=== PATIENT | male | born 1935 | race Caucasian/White ===

== ENCOUNTER → 2017-01-03 | Outpatient (CLI) | payer MEDICARE ==
[~2017-01-03] MED LIST: AMLO5TAB2 PO; ASPI-496 PO; CARV-39 PO; CARV3.1212 PO; CHOL200012 PO; CLOP75TA PO; CLOP75TA22 PO; FERR325T20 PO; FURO20TA3 PO; FURO40TA6 PO; LISI-170 PO; LISI40TA PO; MAGN300C PO; MYCO250C PO; PANT40TA3 PO; POTA20TA14 PO; PRAV80TA2 PO; REPA1TAB6 PO; SAXA2.5T PO; TACR0.5C4 PO; TAMS-11 PO; WARF5TAB PO-COUM
[2017-01-03 08:46] LABS: ASPARTATE AMINO TRANSFERASE 18 U/L (15-37); BLOOD UREA NITROGEN 27 mg/dL (7-18)
== END | disposition home or self-care (01) ==
LOC: LAB 07:59
PROVIDERS: ATTEND Internal Medicine Endocrinology, Diabetes & Metabolism
DX: E78.2 Mixed hyperlipidemia (principal); I10 Essential (primary) hypertension; E11.65 Type 2 diabetes mellitus with hyperglycemia
CPT/HCPCS: 36415; 80053; 80061; 83036; 85025

== ENCOUNTER → 2017-03-04 | Outpatient (CLI) | payer MEDICARE ==
[2017-03-04 08:16] LABS: PTH INTACT INTERPRETATION ** Comment **
[2017-03-04 08:38] LABS: PATH.CAST-FLAG NOT PRESENT; SPERM-FLAG NOT PRESENT; SRC-FLAG NOT PRESENT; XTAL-FLAG NOT PRESENT; YLC-FLAG NOT PRESENT
[2017-03-04 08:50] LABS: ASPARTATE AMINO TRANSFERASE 18 U/L (15-37); BLOOD UREA NITROGEN 33 mg/dL (7-18)
[2017-03-04 09:04] LABS: PARATHYROID HORMONE INTACT 74.1 pg/mL (14-72)
== END | disposition home or self-care (01) ==
LOC: LAB 08:09
PROVIDERS: ATTEND Internal Medicine Nephrology
DX: I12.9 Hypertensive chronic kidney disease with stage 1 through stage 4 chronic kidney disease, or unspecified chronic kidney disease (principal); N18.9 Chronic kidney disease, unspecified; E11.22 Type 2 diabetes mellitus with diabetic chronic kidney disease; E88.9 Metabolic disorder, unspecified; E55.9 Vitamin D deficiency, unspecified; R80.9 Proteinuria, unspecified; E87.6 Hypokalemia; Z94.0 Kidney transplant status
CPT/HCPCS: 36415; 80053; 80197; 81001; 82306; 82310; 82550; 82570; 82728; 83540; 83550; 83735; 83970; 84100; 84156; 84550; 85025

== ENCOUNTER 2017-05-07 10:26 | Emergency (ER) | payer MEDICARE ==
[~2017-05-07] VITALS: Ht 172.7 cm; Wt 73.9 kg
[2017-05-07 10:27] VITALS: BP 164/65
== END 2017-05-07 13:26 | disposition home or self-care (01) ==
LOC: ED 13:10
DX: S01.111A Laceration without foreign body of right eyelid and periocular area, initial encounter (principal); S61.411A Laceration without foreign body of right hand, initial encounter; M15.9 Polyosteoarthritis, unspecified; I10 Essential (primary) hypertension; Z95.1 Presence of aortocoronary bypass graft; W01.0XXA Fall on same level from slipping, tripping and stumbling without subsequent striking against object, initial encounter; Y93.89 Activity, other specified; Y92.098 Other place in other non-institutional residence as the place of occurrence of the external cause; Y99.8 Other external cause status; Z88.5 Allergy status to narcotic agent; Z88.8 Allergy status to other drugs, medicaments and biological substances
CPT/HCPCS: 36415; 70450; 85610; 99285

== ENCOUNTER → 2017-06-25 | Outpatient (CLI) | payer MEDICARE ==
[~2017-06-25] MED LIST changes: -CHOL200012 PO; +CHOL200074 PO; -CLOP75TA22 PO; +CLOP75TA52 PO; +FERR325T18 PO; -FERR325T20 PO
[2017-06-25 08:09] LABS: PTH INTACT INTERPRETATION ** Comment **
[2017-06-25 08:41] LABS: HEMATOCRIT 41.4 % (39.2-51.8); HEMOGLOBIN 13.8 g/dL (13.7-18.0); WHITE BLOOD COUNT 5.6 x10^3/uL (3.4-10)
[2017-06-25 08:50] LABS: ASPARTATE AMINO TRANSFERASE 18 U/L (15-37); BLOOD UREA NITROGEN 26 mg/dL (7-18)
[2017-06-25 09:56] LABS: PARATHYROID HORMONE INTACT 76.6 pg/mL (14-72)
== END | disposition home or self-care (01) ==
LOC: LAB 08:02
PROVIDERS: ATTEND Internal Medicine Nephrology
DX: I12.9 Hypertensive chronic kidney disease with stage 1 through stage 4 chronic kidney disease, or unspecified chronic kidney disease (principal); E11.22 Type 2 diabetes mellitus with diabetic chronic kidney disease; N18.9 Chronic kidney disease, unspecified; E55.9 Vitamin D deficiency, unspecified; E88.9 Metabolic disorder, unspecified; E87.6 Hypokalemia; Z94.0 Kidney transplant status
CPT/HCPCS: 36415; 80053; 80197; 81003; 82306; 82310; 82550; 82570; 83036; 83735; 83970; 84100; 84156; 85025

== ENCOUNTER → 2017-10-11 | Outpatient (CLI) | payer MEDICARE ==
[2017-10-11 09:11] LABS: ALANINE AMINOTRANSFERASE 27 U/L (12-78); ANION GAP 8 mmol/L (5-15); CALCIUM 8.7 mg/dL (8.5-10.1); CHLORIDE 107 mmol/L (98-107); CREATININE 1.42 mg/dL (0.7-1.3)
[2017-10-11 09:12] LABS: BASOPHILS # (AUTO) 0.02 x10^3/uL (0-0.1); BASOPHILS % (AUTO) 0 % (0-1); EOSINOPHILS # (AUTO) 0.12 x10^3/uL (0-0.4); EOSINOPHILS % (AUTO) 2 % (1-7); LYMPHOCYTES % (AUTO) 12 % (22-44); MD NO; MEAN CORPUSCULAR HEMOGLOBIN 31.2 pg (27.5-34.5); MEAN CORPUSCULAR HGB CONC 33.3 g/dL (33.2-36.2); MEAN CORPUSCULAR VOLUME 93.5 fL (81-97); MEAN PLATELET VOLUME 9.8 fL (7.4-10.4); MONOCYTES # (AUTO) 0.56 x10^3/uL (0.2-0.8); MONOCYTES % (AUTO) 10 % (2-9); NEUTROPHILS % (AUTO) 76 % (42-75); PLATELET COUNT 152 x10^3/uL (130-400); RED BLOOD COUNT 4.28 x10^6/uL (4.38-5.82); RED CELL DISTRIBUTION WIDTH 14.2 % (9.4-14.8)
[2017-10-11 09:14] LABS: ALKALINE PHOSPHATASE 83 U/L (45-117); CREATINE KINASE, TOTAL 101 U/L (39-308); TOTAL PROTEIN 7.5 g/dL (6.4-8.2)
[2017-10-11 09:18] LABS: MICROSCOPIC AUTO
[2017-10-11 09:22] LABS: CULTURE INDICATED? NO
[2017-10-11 09:56] LABS: CREATININE,URINE RANDOM 73.2 mg/dL
== END ==
LOC: LAB 08:36
PROVIDERS: ATTEND Internal Medicine Nephrology
DX: Z48.298 Encounter for aftercare following other organ transplant (principal); E83.30 Disorder of phosphorus metabolism, unspecified; N39.0 Urinary tract infection, site not specified; Z94.0 Kidney transplant status
CPT/HCPCS: 36415; 80053; 80197; 81001; 82550; 82570; 83735; 84100; 84156; 85025

== ENCOUNTER → 2018-03-24 | Outpatient (CLI) | payer MEDICARE ==
[2018-03-24 10:39] LABS: HEMOGLOBIN A1C 7.5 % (4.2-6.3)
== END | disposition home or self-care (01) ==
LOC: LAB 07:51
PROVIDERS: ATTEND Internal Medicine Endocrinology, Diabetes & Metabolism
DX: E11.69 Type 2 diabetes mellitus with other specified complication (principal)
CPT/HCPCS: 36415; 83036

== ENCOUNTER 2018-07-01 13:01 | Inpatient (IN) | payer MEDICARE ==
[~2018-07-01] VITALS: Ht 172.7 cm; Wt 71.4 kg
[~2018-07-01 13:01] MED LIST changes: -AMLO5TAB2 PO; +AMLO5TAB7 PO
[2018-07-01 13:56] LABS: BASOPHILS # (AUTO) 0.02 x10^3/uL (0-0.1); BASOPHILS % (AUTO) 0 % (0-1); EOSINOPHILS # (AUTO) 0.03 x10^3/uL (0-0.4); EOSINOPHILS % (AUTO) 0 % (1-7); LYMPHOCYTES # (AUTO) 0.75 x10^3/uL (1-3.4); LYMPHOCYTES % (AUTO) 8 % (22-44); MD NO; MEAN CORPUSCULAR HEMOGLOBIN 31.6 pg (27.5-34.5); MEAN CORPUSCULAR HGB CONC 33.2 g/dL (33.2-36.2); MEAN CORPUSCULAR VOLUME 95.3 fL (81-97); MEAN PLATELET VOLUME 9.4 fL (7.4-10.4); MONOCYTES # (AUTO) 1.21 x10^3/uL (0.2-0.8); MONOCYTES % (AUTO) 13 % (2-9); NEUTROPHILS # (AUTO) 7.11 x10^3/uL (1.8-6.8); NEUTROPHILS % (AUTO) 78 % (42-75); PLATELET COUNT 204 x10^3/uL (130-400); RED BLOOD COUNT 3.97 x10^6/uL (4.38-5.82); RED CELL DISTRIBUTION WIDTH 13.7 % (9.4-14.8)
[2018-07-01 14:07] LABS: ALANINE AMINOTRANSFERASE 40 U/L (12-78); ALBUMIN 3.3 g/dL (3.4-5.0); ANION GAP 10 mmol/L (5-15); CALCIUM 8.5 mg/dL (8.5-10.1); CHLORIDE 103 mmol/L (98-107); CREATININE 1.88 mg/dL (0.7-1.3)
[2018-07-01 14:12] LABS: ALKALINE PHOSPHATASE 113 U/L (45-117); TOTAL PROTEIN 7.4 g/dL (6.4-8.2); TROPONIN I 0.036 ng/mL (0.000-0.045)
[2018-07-01 14:17] LABS: INTERNATIONAL NORMALIZED RATIO 1.3 (0.93-1.1); PROTHROMBIN TIME 13.4 Seconds (9.6-11.5)
[2018-07-01] MEDS ORDERED: MYCO250C PO (14:22)
[2018-07-01] MEDS ORDERED: RIVA15TA PO (14:26)
[2018-07-01] MEDS ORDERED: CEFTRIAXONE 1,000 MG in SODIUM CHLORIDE 0.9% 50 ML IVPB ONE (16:30)
[2018-07-01] MEDS ORDERED: SODIUM CHLORIDE FLUSH 10ML SYR IVF PRN (16:30)
[2018-07-01] MEDS ORDERED: AZITHROMYCIN 500 MG in SODIUM CHLORIDE 0.9% 250 ML IVPB ONE (16:30)
[2018-07-01] MEDS ORDERED: CEFTRIAXONE PMX 1GM/50ML 50 ML ONE (16:43)
[2018-07-01] MEDS: CEFTRIAXONE 1,000 MG in SODIUM CHLORIDE 0.9% 50 ML IV SCH (17:00)
[2018-07-01] MEDS ORDERED: HEPARIN 5,000 UNITS/ML, 1ML SQ SCH (17:00)
[2018-07-01] MEDS ORDERED: SODIUM CHLORIDE 0.9% 1,000 ML IV SCH (17:00)
[2018-07-01] MEDS ORDERED: VANCOMYCIN PER PHARMACY MC PRN (17:00)
[2018-07-01] MEDS: FLUCONAZOLE 100MG/50ML 100 MG in BAG 1 EACH IV SCH (17:00)
[2018-07-01] MEDS ORDERED: PROMETHAZINE 25 MG/ML, 1ML IM PRN (17:00)
[2018-07-01] MEDS ORDERED: PHARMACOKINETIC MONITORING MC PRN (18:00)
[2018-07-01] MEDS ORDERED: PHARMACOKINETIC CONSULTATION MC ONE (18:00)
[2018-07-01 18:04] VITALS: BP 129/70
[2018-07-01 19:22] VITALS: BP 133/56
[2018-07-01] MEDS: VANCOMYCIN 1,400 MG in SODIUM CHLORIDE 0.9% 250 ML IV SCH (19:51)
[2018-07-01] MEDS: PRAVASTATIN SODIUM 80 MG PO SCH (21:00)
[2018-07-01] MEDS: FERROUS SULFATE 325 MG TABLET PO SCH (22:24)
[2018-07-01] MEDS: REPAGLINIDE 1 MG TABLET PO SCH (22:24)
[2018-07-01] MEDS: TACROLIMUS 0.5 MG CAPSULE PO SCH (22:24)
[2018-07-01] MEDS: TAMSULOSIN 0.4 MG CAP.ER.24H PO SCH (22:24)
[2018-07-01] MEDS: LISINOPRIL 20 MG TABLET PO SCH (22:25)
[2018-07-01] MEDS: CARVEDILOL 6.25 MG TABLET PO SCH (22:25)
[2018-07-02 01:23] VITALS: BP 139/59
[2018-07-02] MEDS: CARVEDILOL 6.25 MG TABLET PO SCH ×2 (05:03→18:32)
[2018-07-02 05:13] LABS: BASOPHILS # (AUTO) 0.02 x10^3/uL (0-0.1); BASOPHILS % (AUTO) 0 % (0-1); EOSINOPHILS # (AUTO) 0.04 x10^3/uL (0-0.4); EOSINOPHILS % (AUTO) 1 % (1-7); LYMPHOCYTES # (AUTO) 0.74 x10^3/uL (1-3.4); LYMPHOCYTES % (AUTO) 9 % (22-44); MD NO; MEAN CORPUSCULAR HEMOGLOBIN 32.4 pg (27.5-34.5); MEAN CORPUSCULAR HGB CONC 34.4 g/dL (33.2-36.2); MEAN CORPUSCULAR VOLUME 94.1 fL (81-97); MEAN PLATELET VOLUME 9.3 fL (7.4-10.4); MONOCYTES # (AUTO) 1.11 x10^3/uL (0.2-0.8); MONOCYTES % (AUTO) 13 % (2-9); NEUTROPHILS # (AUTO) 6.69 x10^3/uL (1.8-6.8); NEUTROPHILS % (AUTO) 78 % (42-75); PLATELET COUNT 171 x10^3/uL (130-400); RED BLOOD COUNT 3.48 x10^6/uL (4.38-5.82)
[2018-07-02 05:24] LABS: ANION GAP 8 mmol/L (5-15); CALCIUM 8.1 mg/dL (8.5-10.1); CHLORIDE 107 mmol/L (98-107)
[2018-07-02 05:28] LABS: CREATININE 1.54 mg/dL (0.7-1.3)
[2018-07-02 07:55] VITALS: BP 122/58
[2018-07-02] MEDS ORDERED: TEMPLATE NON-FORMULARY MED. (Potassium Chloride** 20 MEQ) PO SCH (09:00)
[2018-07-02] MEDS: SAXAGLIPTIN HCL 2.5 MG PO SCH (09:00)
[2018-07-02] MEDS: CLOPIDOGREL 75 MG TABLET PO SCH (09:43)
[2018-07-02] MEDS: RIVAROXABAN 15 MG TABLET PO SCH (09:44)
[2018-07-02] MEDS: MAGNESIUM OXIDE 400 MG TABLET PO SCH (09:44)
[2018-07-02] MEDS: TAMSULOSIN 0.4 MG CAP.ER.24H PO SCH ×2 (09:44→20:26)
[2018-07-02] MEDS: TACROLIMUS 0.5 MG CAPSULE PO SCH ×2 (09:45→20:25)
[2018-07-02] MEDS: REPAGLINIDE 1 MG TABLET PO SCH ×3 (09:45→20:25)
[2018-07-02] MEDS: FERROUS SULFATE 325 MG TABLET PO SCH ×2 (09:45→20:25)
[2018-07-02] MEDS: CHOLECALCIFEROL 1,000 UNIT TABLET PO SCH (09:58)
[2018-07-02] MEDS: LISINOPRIL 20 MG TABLET PO SCH ×2 (10:03→20:26)
[2018-07-02 12:47] VITALS: BP 122/47
[2018-07-02] MEDS: CEFTRIAXONE 1,000 MG in SODIUM CHLORIDE 0.9% 50 ML IV SCH (17:31)
[2018-07-02] MEDS: FLUCONAZOLE 100MG/50ML 100 MG in BAG 1 EACH IV SCH (18:23)
[2018-07-02 18:33] VITALS: BP 150/65
[2018-07-02 19:44] VITALS: BP 153/67
[2018-07-02] MEDS: VANCOMYCIN 1,400 MG in SODIUM CHLORIDE 0.9% 250 ML IV SCH (20:25)
[2018-07-02] MEDS: PRAVASTATIN SODIUM 80 MG PO SCH (20:26)
[2018-07-03 00:12] VITALS: BP 151/62
[2018-07-03 05:28] LABS: ANION GAP 11 mmol/L (5-15); CALCIUM 8.1 mg/dL (8.5-10.1); CHLORIDE 107 mmol/L (98-107)
[2018-07-03] MEDS: CARVEDILOL 6.25 MG TABLET PO SCH ×2 (05:38→18:09)
[2018-07-03 05:39] LABS: HEMOGLOBIN A1C 7.7 % (4.2-6.3)
[2018-07-03 07:55] VITALS: BP 139/58
[2018-07-03] MEDS: TACROLIMUS 0.5 MG CAPSULE PO SCH ×2 (08:37→21:41)
[2018-07-03] MEDS: CLOPIDOGREL 75 MG TABLET PO SCH (08:38)
[2018-07-03] MEDS: FERROUS SULFATE 325 MG TABLET PO SCH ×2 (08:38→22:13)
[2018-07-03] MEDS: CHOLECALCIFEROL 1,000 UNIT TABLET PO SCH (08:38)
[2018-07-03] MEDS: REPAGLINIDE 1 MG TABLET PO SCH ×3 (08:38→21:40)
[2018-07-03] MEDS: MAGNESIUM OXIDE 400 MG TABLET PO SCH (08:38)
[2018-07-03] MEDS: RIVAROXABAN 15 MG TABLET PO SCH (08:38)
[2018-07-03] MEDS: TAMSULOSIN 0.4 MG CAP.ER.24H PO SCH ×2 (08:38→21:40)
[2018-07-03] MEDS: LISINOPRIL 20 MG TABLET PO SCH ×2 (08:38→21:40)
[2018-07-03] MEDS: SAXAGLIPTIN HCL 2.5 MG PO SCH (09:00)
[2018-07-03 11:07] VITALS: BP 151/63
[2018-07-03 13:09] VITALS: BP 128/62
[2018-07-03 16:37] LABS: MICROSCOPIC INDICATED
[2018-07-03 16:53] LABS: CULTURE INDICATED? NO
[2018-07-03] MEDS: CEFTRIAXONE 2 GM in SODIUM CHLORIDE 0.9% 50 ML IV SCH (17:58)
[2018-07-03] MEDS: LINEZOLID 600 MG TABLET PO SCH (17:58)
[2018-07-03 20:24] VITALS: BP 146/52
[2018-07-03] MEDS: PRAVASTATIN SODIUM 80 MG PO SCH (21:38)
[2018-07-03] MEDS: GUAIFENESIN/DM 200-20MG, 10ML UDC PO PRN (21:41)
[2018-07-03 23:55] VITALS: BP 147/61
[2018-07-04 03:01] VITALS: BP 145/60
[2018-07-04] MEDS: CARVEDILOL 6.25 MG TABLET PO SCH ×2 (06:28→18:20)
[2018-07-04] MEDS: GUAIFENESIN/DM 200-20MG, 10ML UDC PO PRN (06:29)
[2018-07-04 06:37] VITALS: BP 131/55
[2018-07-04] MEDS: SAXAGLIPTIN HCL 2.5 MG PO SCH (09:00)
[2018-07-04] MEDS: CLOPIDOGREL 75 MG TABLET PO SCH (09:12)
[2018-07-04] MEDS: MAGNESIUM OXIDE 400 MG TABLET PO SCH (09:12)
[2018-07-04] MEDS: TACROLIMUS 0.5 MG CAPSULE PO SCH ×2 (09:12→21:06)
[2018-07-04] MEDS: REPAGLINIDE 1 MG TABLET PO SCH ×3 (09:12→21:06)
[2018-07-04] MEDS: TAMSULOSIN 0.4 MG CAP.ER.24H PO SCH ×2 (09:12→21:06)
[2018-07-04] MEDS: LISINOPRIL 20 MG TABLET PO SCH ×2 (09:13→21:06)
[2018-07-04] MEDS: FERROUS SULFATE 325 MG TABLET PO SCH ×2 (09:13→21:07)
[2018-07-04] MEDS: LINEZOLID 600 MG TABLET PO SCH ×2 (09:13→21:06)
[2018-07-04] MEDS: RIVAROXABAN 15 MG TABLET PO SCH (09:14)
[2018-07-04] MEDS: CHOLECALCIFEROL 1,000 UNIT TABLET PO SCH (09:14)
[2018-07-04 12:34] VITALS: BP 125/57
[2018-07-04] MEDS: INSULIN LISPRO 100 UNITS/ML, PEN SQ-INSULIN SCH ×2 (16:00→21:06)
[2018-07-04] MEDS: CEFTRIAXONE 2 GM in SODIUM CHLORIDE 0.9% 50 ML IV SCH (18:21)
[2018-07-04 18:38] VITALS: BP 122/53
[2018-07-05 00:49] VITALS: BP 127/59
[2018-07-05 05:05] LABS: CHLORIDE 106 mmol/L (98-107)
[2018-07-05 05:19] LABS: ANION GAP 11 mmol/L (5-15); CALCIUM 8.2 mg/dL (8.5-10.1); CREATININE 1.29 mg/dL (0.7-1.3)
[2018-07-05 05:46] LABS: BASOPHILS # (AUTO) 0.02 x10^3/uL (0-0.1); BASOPHILS % (AUTO) 0 % (0-1); EOSINOPHILS # (AUTO) 0.38 x10^3/uL (0-0.4); EOSINOPHILS % (AUTO) 4 % (1-7); LYMPHOCYTES # (AUTO) 0.79 x10^3/uL (1-3.4); LYMPHOCYTES % (AUTO) 9 % (22-44); MD SCAN; MEAN CORPUSCULAR HEMOGLOBIN 32.4 pg (27.5-34.5); MEAN CORPUSCULAR HGB CONC 33.9 g/dL (33.2-36.2); MEAN CORPUSCULAR VOLUME 95.6 fL (81-97); MEAN PLATELET VOLUME 9.5 fL (7.4-10.4); MONOCYTES # (AUTO) 0.95 x10^3/uL (0.2-0.8); MONOCYTES % (AUTO) 11 % (2-9); NEUTROPHILS # (AUTO) 6.95 x10^3/uL (1.8-6.8); NEUTROPHILS % (AUTO) 76 % (42-75); PLATELET COUNT 221 x10^3/uL (130-400); RED BLOOD COUNT 3.45 x10^6/uL (4.38-5.82); RED CELL DISTRIBUTION WIDTH 13.9 % (9.4-14.8)
[2018-07-05] MEDS: CARVEDILOL 6.25 MG TABLET PO SCH ×2 (06:21→17:04)
[2018-07-05 06:53] VITALS: BP 134/53
[2018-07-05] MEDS: INSULIN LISPRO 100 UNITS/ML, PEN SQ-INSULIN SCH ×4 (07:00→20:47)
[2018-07-05] MEDS: PRAVASTATIN SODIUM 80 MG PO SCH ×2 (09:00→21:00)
[2018-07-05] MEDS: SAXAGLIPTIN HCL 2.5 MG PO SCH (09:00)
[2018-07-05] MEDS: MAGNESIUM OXIDE 400 MG TABLET PO SCH (10:21)
[2018-07-05] MEDS: LINEZOLID 600 MG TABLET PO SCH (10:22)
[2018-07-05] MEDS: TAMSULOSIN 0.4 MG CAP.ER.24H PO SCH ×2 (10:22→20:46)
[2018-07-05] MEDS: TACROLIMUS 0.5 MG CAPSULE PO SCH ×2 (10:23→20:47)
[2018-07-05] MEDS: FERROUS SULFATE 325 MG TABLET PO SCH ×2 (10:23→20:46)
[2018-07-05] MEDS: RIVAROXABAN 15 MG TABLET PO SCH (10:24)
[2018-07-05] MEDS: CLOPIDOGREL 75 MG TABLET PO SCH (10:24)
[2018-07-05] MEDS: LISINOPRIL 20 MG TABLET PO SCH ×2 (10:26→20:46)
[2018-07-05] MEDS: CHOLECALCIFEROL 1,000 UNIT TABLET PO SCH (10:26)
[2018-07-05] MEDS: REPAGLINIDE 1 MG TABLET PO SCH ×3 (10:39→20:47)
[2018-07-05 12:37] VITALS: BP 135/52
[2018-07-05] MEDS ORDERED: SODIUM CHLORIDE INHALATION 7%, 4 ML NPPB ONE (14:00)
[2018-07-05] MEDS: CEFTRIAXONE 2 GM in SODIUM CHLORIDE 0.9% 50 ML IV SCH (17:09)
[2018-07-05 20:54] VITALS: BP 138/57
[2018-07-06 00:49] VITALS: BP 143/64
[2018-07-06 04:38] LABS: BASOPHILS % (AUTO) 0 % (0-1); EOSINOPHILS # (AUTO) 0.13 x10^3/uL (0-0.4); EOSINOPHILS % (AUTO) 1 % (1-7); LYMPHOCYTES # (AUTO) 0.62 x10^3/uL (1-3.4); LYMPHOCYTES % (AUTO) 7 % (22-44); MD NO; MEAN CORPUSCULAR HEMOGLOBIN 31.9 pg (27.5-34.5); MEAN CORPUSCULAR HGB CONC 33.7 g/dL (33.2-36.2); MEAN CORPUSCULAR VOLUME 94.8 fL (81-97); MEAN PLATELET VOLUME 9.7 fL (7.4-10.4); MONOCYTES # (AUTO) 1.12 x10^3/uL (0.2-0.8); MONOCYTES % (AUTO) 12 % (2-9); NEUTROPHILS # (AUTO) 7.68 x10^3/uL (1.8-6.8); NEUTROPHILS % (AUTO) 80 % (42-75); PLATELET COUNT 254 x10^3/uL (130-400); RED BLOOD COUNT 3.48 x10^6/uL (4.38-5.82); RED CELL DISTRIBUTION WIDTH 13.9 % (9.4-14.8)
[2018-07-06 04:49] LABS: CHLORIDE 104 mmol/L (98-107)
[2018-07-06 04:52] LABS: ANION GAP 11 mmol/L (5-15); CALCIUM 8.4 mg/dL (8.5-10.1); CREATININE 1.23 mg/dL (0.7-1.3)
[2018-07-06] MEDS: CARVEDILOL 6.25 MG TABLET PO SCH ×2 (06:13→17:18)
[2018-07-06] MEDS: REPAGLINIDE 1 MG TABLET PO SCH ×3 (07:00→17:18)
[2018-07-06 07:06] VITALS: BP 134/51
[2018-07-06] MEDS: INSULIN LISPRO 100 UNITS/ML, PEN SQ-INSULIN SCH ×4 (08:26→20:39)
[2018-07-06] MEDS: LISINOPRIL 20 MG TABLET PO SCH ×2 (10:09→20:37)
[2018-07-06] MEDS: RIVAROXABAN 15 MG TABLET PO SCH (10:09)
[2018-07-06] MEDS: CHOLECALCIFEROL 1,000 UNIT TABLET PO SCH (10:09)
[2018-07-06] MEDS: TACROLIMUS 0.5 MG CAPSULE PO SCH ×2 (10:10→20:37)
[2018-07-06] MEDS: FERROUS SULFATE 325 MG TABLET PO SCH ×2 (10:10→20:37)
[2018-07-06] MEDS: CLOPIDOGREL 75 MG TABLET PO SCH (10:10)
[2018-07-06] MEDS: TAMSULOSIN 0.4 MG CAP.ER.24H PO SCH ×2 (10:10→20:37)
[2018-07-06] MEDS: MAGNESIUM OXIDE 400 MG TABLET PO SCH (10:10)
[2018-07-06] MEDS: SAXAGLIPTIN HCL 2.5 MG PO SCH (10:11)
[2018-07-06] MEDS ORDERED: SODIUM CHLORIDE INHALATION 7%, 4 ML NPPB ONE (11:00)
[2018-07-06 12:14] VITALS: BP 144/54
[2018-07-06] MEDS: CEFTRIAXONE 2 GM in SODIUM CHLORIDE 0.9% 50 ML IV SCH (17:18)
[2018-07-06] MEDS: PRAVASTATIN SODIUM 80 MG HOMEMEDPO SCH (20:37)
[2018-07-06 21:04] VITALS: BP 140/45
[2018-07-07 02:41] VITALS: BP 144/65
[2018-07-07] MEDS: CARVEDILOL 6.25 MG TABLET PO SCH ×2 (05:22→17:56)
[2018-07-07 06:06] LABS: ANION GAP 11 mmol/L (5-15); CALCIUM 8.4 mg/dL (8.5-10.1); CHLORIDE 107 mmol/L (98-107)
[2018-07-07 06:13] LABS: CREATININE 1.14 mg/dL (0.7-1.3)
[2018-07-07 06:21] LABS: MEAN CORPUSCULAR HEMOGLOBIN 31.9 pg (27.5-34.5); MEAN CORPUSCULAR HGB CONC 33.5 g/dL (33.2-36.2); MEAN CORPUSCULAR VOLUME 95.3 fL (81-97); RED BLOOD COUNT 3.31 x10^6/uL (4.38-5.82); RED CELL DISTRIBUTION WIDTH 13.8 % (9.4-14.8)
[2018-07-07 06:32] VITALS: BP 157/62
[2018-07-07] MEDS: REPAGLINIDE 1 MG TABLET PO SCH (07:00)
[2018-07-07 07:33] LABS: BASOPHILS # (AUTO) 0.02 x10^3/uL (0-0.1); BASOPHILS % (AUTO) 0 % (0-1); EOSINOPHILS # (AUTO) 0.18 x10^3/uL (0-0.4); EOSINOPHILS % (AUTO) 2 % (1-7); LYMPHOCYTES # (AUTO) 0.74 x10^3/uL (1-3.4); LYMPHOCYTES % (AUTO) 9 % (22-44); MD SCAN; MEAN PLATELET VOLUME 9.6 fL (7.4-10.4); MONOCYTES # (AUTO) 1.09 x10^3/uL (0.2-0.8); MONOCYTES % (AUTO) 13 % (2-9); NEUTROPHILS # (AUTO) 6.39 x10^3/uL (1.8-6.8); NEUTROPHILS % (AUTO) 76 % (42-75); PLATELET COUNT 262 x10^3/uL (130-400)
[2018-07-07] MEDS: INSULIN LISPRO 100 UNITS/ML, PEN SQ-INSULIN SCH ×4 (07:38→20:48)
[2018-07-07] MEDS: LISINOPRIL 20 MG TABLET PO SCH ×2 (09:49→20:49)
[2018-07-07] MEDS: CLOPIDOGREL 75 MG TABLET PO SCH (09:49)
[2018-07-07] MEDS: MAGNESIUM OXIDE 400 MG TABLET PO SCH (09:49)
[2018-07-07] MEDS: TACROLIMUS 0.5 MG CAPSULE PO SCH ×2 (09:49→20:49)
[2018-07-07] MEDS: RIVAROXABAN 15 MG TABLET PO SCH (09:49)
[2018-07-07] MEDS: TAMSULOSIN 0.4 MG CAP.ER.24H PO SCH ×2 (09:49→20:49)
[2018-07-07] MEDS: SAXAGLIPTIN HCL 2.5 MG PO SCH (09:50)
[2018-07-07] MEDS: FERROUS SULFATE 325 MG TABLET PO SCH ×2 (09:50→20:49)
[2018-07-07] MEDS: CHOLECALCIFEROL 1,000 UNIT TABLET PO SCH (09:50)
[2018-07-07] MEDS: AZITHROMYCIN 250 MG TABLET PO SCH (12:42)
[2018-07-07 12:48] VITALS: BP 137/71
[2018-07-07] MEDS: CEFTRIAXONE 2 GM in SODIUM CHLORIDE 0.9% 50 ML IV SCH (17:55)
[2018-07-07 18:58] VITALS: BP 137/69
[2018-07-07] MEDS: PRAVASTATIN SODIUM 80 MG HOMEMEDPO SCH (20:49)
[2018-07-07] MEDS ORDERED: DOXYCYCLINE 50 MG/5 ML ORAL SUSP PO SCH (21:00)
[2018-07-08 01:31] VITALS: BP 142/58
[2018-07-08 05:08] LABS: ANION GAP 10 mmol/L (5-15); CALCIUM 8.3 mg/dL (8.5-10.1); CHLORIDE 104 mmol/L (98-107); CREATININE 1.15 mg/dL (0.7-1.3)
[2018-07-08 05:11] LABS: MEAN CORPUSCULAR HEMOGLOBIN 31.6 pg (27.5-34.5); MEAN CORPUSCULAR HGB CONC 33.1 g/dL (33.2-36.2); MEAN CORPUSCULAR VOLUME 95.5 fL (81-97); MEAN PLATELET VOLUME 9.8 fL (7.4-10.4); PLATELET COUNT 349 x10^3/uL (130-400); RED BLOOD COUNT 3.67 x10^6/uL (4.38-5.82); RED CELL DISTRIBUTION WIDTH 13.8 % (9.4-14.8)
[2018-07-08] MEDS: CARVEDILOL 6.25 MG TABLET PO SCH ×2 (05:22→17:33)
[2018-07-08 05:47] LABS: BASOPHILS # (AUTO) 0.01 x10^3/uL (0-0.1); BASOPHILS % (AUTO) 0 % (0-1); EOSINOPHILS # (AUTO) 0.27 x10^3/uL (0-0.4); EOSINOPHILS % (AUTO) 3 % (1-7); LYMPHOCYTES # (AUTO) 0.77 x10^3/uL (1-3.4); LYMPHOCYTES % (AUTO) 7 % (22-44); MONOCYTES # (AUTO) 1.08 x10^3/uL (0.2-0.8); MONOCYTES % (AUTO) 10 % (2-9); NEUTROPHILS # (AUTO) 8.65 x10^3/uL (1.8-6.8); NEUTROPHILS % (AUTO) 80 % (42-75)
[2018-07-08 06:23] LABS: MD SCAN
[2018-07-08] MEDS: INSULIN LISPRO 100 UNITS/ML, PEN SQ-INSULIN SCH ×4 (07:00→20:45)
[2018-07-08 07:16] VITALS: BP 137/54
[2018-07-08] MEDS: AZITHROMYCIN 250 MG TABLET PO SCH (09:00)
[2018-07-08] MEDS: FERROUS SULFATE 325 MG TABLET PO SCH ×2 (11:12→20:45)
[2018-07-08] MEDS: TACROLIMUS 0.5 MG CAPSULE PO SCH ×2 (11:12→20:45)
[2018-07-08] MEDS: TAMSULOSIN 0.4 MG CAP.ER.24H PO SCH ×2 (11:12→20:45)
[2018-07-08] MEDS: LISINOPRIL 20 MG TABLET PO SCH ×2 (11:12→20:45)
[2018-07-08] MEDS: CHOLECALCIFEROL 1,000 UNIT TABLET PO SCH (11:13)
[2018-07-08] MEDS: MAGNESIUM OXIDE 400 MG TABLET PO SCH (11:15)
[2018-07-08] MEDS: CLOPIDOGREL 75 MG TABLET PO SCH (11:15)
[2018-07-08] MEDS: RIVAROXABAN 15 MG TABLET PO SCH (11:15)
[2018-07-08 12:19] VITALS: BP 136/55
[2018-07-08] MEDS: CEFTRIAXONE 2 GM in SODIUM CHLORIDE 0.9% 50 ML IV SCH (16:53)
[2018-07-08 19:05] VITALS: BP 133/60
[2018-07-08] MEDS: PRAVASTATIN SODIUM 80 MG HOMEMEDPO SCH (20:45)
[2018-07-09 01:35] VITALS: BP 135/61
[2018-07-09] MEDS: CARVEDILOL 6.25 MG TABLET PO SCH ×2 (04:56→18:11)
[2018-07-09 06:18] LABS: ANION GAP 9 mmol/L (5-15); CALCIUM 8.3 mg/dL (8.5-10.1); CHLORIDE 102 mmol/L (98-107); CREATININE 1.04 mg/dL (0.7-1.3)
[2018-07-09 06:48] LABS: MEAN CORPUSCULAR HEMOGLOBIN 31.3 pg (27.5-34.5); MEAN CORPUSCULAR HGB CONC 32.8 g/dL (33.2-36.2); MEAN CORPUSCULAR VOLUME 95.5 fL (81-97); MEAN PLATELET VOLUME 9.5 fL (7.4-10.4); PLATELET COUNT 349 x10^3/uL (130-400); RED BLOOD COUNT 3.62 x10^6/uL (4.38-5.82); RED CELL DISTRIBUTION WIDTH 13.9 % (9.4-14.8)
[2018-07-09 06:50] LABS: BASOPHILS # (AUTO) 0.03 x10^3/uL (0-0.1); BASOPHILS % (AUTO) 0 % (0-1); EOSINOPHILS # (AUTO) 0.34 x10^3/uL (0-0.4); EOSINOPHILS % (AUTO) 3 % (1-7); LYMPHOCYTES # (AUTO) 0.74 x10^3/uL (1-3.4); LYMPHOCYTES % (AUTO) 7 % (22-44); MD SCAN; MONOCYTES % (AUTO) 12 % (2-9); NEUTROPHILS % (AUTO) 77 % (42-75)
[2018-07-09] MEDS: INSULIN LISPRO 100 UNITS/ML, PEN SQ-INSULIN SCH ×4 (07:00→21:38)
[2018-07-09 08:13] VITALS: BP 159/64
[2018-07-09] MEDS: MAGNESIUM OXIDE 400 MG TABLET PO SCH (09:00)
[2018-07-09] MEDS: AZITHROMYCIN 250 MG TABLET PO SCH (09:00)
[2018-07-09] MEDS: TACROLIMUS 0.5 MG CAPSULE PO SCH ×2 (09:05→21:37)
[2018-07-09] MEDS: RIVAROXABAN 15 MG TABLET PO SCH (09:05)
[2018-07-09] MEDS: TAMSULOSIN 0.4 MG CAP.ER.24H PO SCH ×2 (09:05→21:35)
[2018-07-09] MEDS: CLOPIDOGREL 75 MG TABLET PO SCH (09:05)
[2018-07-09] MEDS: FERROUS SULFATE 325 MG TABLET PO SCH ×2 (09:05→21:35)
[2018-07-09] MEDS: LISINOPRIL 20 MG TABLET PO SCH ×2 (09:05→21:35)
[2018-07-09] MEDS: CHOLECALCIFEROL 1,000 UNIT TABLET PO SCH (09:06)
[2018-07-09 14:44] VITALS: BP 130/53
[2018-07-09] MEDS: CEFTRIAXONE 2 GM in SODIUM CHLORIDE 0.9% 50 ML IV SCH (18:11)
[2018-07-09 19:08] VITALS: BP 143/72
[2018-07-09] MEDS: PRAVASTATIN SODIUM 80 MG HOMEMEDPO SCH (21:00)
[2018-07-10 01:25] VITALS: BP 129/55
[2018-07-10] MEDS: CARVEDILOL 6.25 MG TABLET PO SCH ×2 (05:13→16:30)
[2018-07-10 05:32] LABS: BASOPHILS # (AUTO) 0.04 x10^3/uL (0-0.1); BASOPHILS % (AUTO) 1 % (0-1); EOSINOPHILS # (AUTO) 0.52 x10^3/uL (0-0.4); EOSINOPHILS % (AUTO) 6 % (1-7); LYMPHOCYTES # (AUTO) 0.94 x10^3/uL (1-3.4); LYMPHOCYTES % (AUTO) 10 % (22-44); MD NO; MEAN CORPUSCULAR HEMOGLOBIN 31.4 pg (27.5-34.5); MEAN CORPUSCULAR HGB CONC 32.7 g/dL (33.2-36.2); MEAN PLATELET VOLUME 9.4 fL (7.4-10.4); MONOCYTES # (AUTO) 1.01 x10^3/uL (0.2-0.8); MONOCYTES % (AUTO) 11 % (2-9); NEUTROPHILS % (AUTO) 73 % (42-75); PLATELET COUNT 376 x10^3/uL (130-400); RED BLOOD COUNT 3.43 x10^6/uL (4.38-5.82); RED CELL DISTRIBUTION WIDTH 14.2 % (9.4-14.8)
[2018-07-10 05:36] LABS: ANION GAP 9 mmol/L (5-15); CALCIUM 7.9 mg/dL (8.5-10.1); CHLORIDE 104 mmol/L (98-107); CREATININE 1.03 mg/dL (0.7-1.3)
[2018-07-10] MEDS: INSULIN LISPRO 100 UNITS/ML, PEN SQ-INSULIN SCH ×4 (07:00→22:57)
[2018-07-10 08:20] VITALS: BP 159/70
[2018-07-10] MEDS: RIVAROXABAN 15 MG TABLET PO SCH (09:00)
[2018-07-10] MEDS: AZITHROMYCIN 250 MG TABLET PO SCH (09:00)
[2018-07-10] MEDS: MAGNESIUM OXIDE 400 MG TABLET PO SCH (09:47)
[2018-07-10] MEDS: FERROUS SULFATE 325 MG TABLET PO SCH ×2 (09:47→22:40)
[2018-07-10] MEDS: CHOLECALCIFEROL 1,000 UNIT TABLET PO SCH (09:47)
[2018-07-10] MEDS: TACROLIMUS 0.5 MG CAPSULE PO SCH ×2 (09:47→22:40)
[2018-07-10] MEDS: LISINOPRIL 20 MG TABLET PO SCH ×2 (09:48→22:40)
[2018-07-10] MEDS: TAMSULOSIN 0.4 MG CAP.ER.24H PO SCH ×2 (09:48→22:41)
[2018-07-10] MEDS: CLOPIDOGREL 75 MG TABLET PO SCH (09:48)
[2018-07-10 14:41] VITALS: BP 133/52
[2018-07-10] MEDS: CEFTRIAXONE 2 GM in SODIUM CHLORIDE 0.9% 50 ML IV SCH (16:31)
[2018-07-10 20:04] VITALS: BP 132/47
[2018-07-10] MEDS: PRAVASTATIN SODIUM 80 MG HOMEMEDPO SCH (21:00)
[2018-07-10 22:39] VITALS: BP 129/61
[2018-07-11 01:44] VITALS: BP 137/59
[2018-07-11 05:17] LABS: BASOPHILS # (AUTO) 0.04 x10^3/uL (0-0.1); BASOPHILS % (AUTO) 1 % (0-1); EOSINOPHILS # (AUTO) 0.71 x10^3/uL (0-0.4); EOSINOPHILS % (AUTO) 8 % (1-7); LYMPHOCYTES # (AUTO) 0.92 x10^3/uL (1-3.4); LYMPHOCYTES % (AUTO) 11 % (22-44); MD NO; MEAN CORPUSCULAR HEMOGLOBIN 31.1 pg (27.5-34.5); MEAN CORPUSCULAR HGB CONC 32.7 g/dL (33.2-36.2); MEAN CORPUSCULAR VOLUME 95.1 fL (81-97); MEAN PLATELET VOLUME 9.1 fL (7.4-10.4); MONOCYTES # (AUTO) 0.93 x10^3/uL (0.2-0.8); MONOCYTES % (AUTO) 11 % (2-9); NEUTROPHILS # (AUTO) 6.16 x10^3/uL (1.8-6.8); NEUTROPHILS % (AUTO) 70 % (42-75); PLATELET COUNT 390 x10^3/uL (130-400); RED BLOOD COUNT 3.42 x10^6/uL (4.38-5.82)
[2018-07-11 05:26] LABS: ANION GAP 9 mmol/L (5-15); CALCIUM 8.1 mg/dL (8.5-10.1); CHLORIDE 106 mmol/L (98-107); CREATININE 0.96 mg/dL (0.7-1.3)
[2018-07-11] MEDS: CARVEDILOL 6.25 MG TABLET PO SCH ×2 (05:48→17:58)
[2018-07-11] MEDS: INSULIN LISPRO 100 UNITS/ML, PEN SQ-INSULIN SCH ×5 (07:00→21:53)
[2018-07-11 08:09] VITALS: BP 137/59
[2018-07-11 08:21] VITALS: BP 129/59
[2018-07-11] MEDS: MAGNESIUM OXIDE 400 MG TABLET PO SCH (09:00)
[2018-07-11] MEDS: AZITHROMYCIN 250 MG TABLET PO SCH (09:00)
[2018-07-11] MEDS: TAMSULOSIN 0.4 MG CAP.ER.24H PO SCH ×2 (09:11→21:52)
[2018-07-11] MEDS: FERROUS SULFATE 325 MG TABLET PO SCH ×2 (09:12→21:52)
[2018-07-11] MEDS: RIVAROXABAN 15 MG TABLET PO SCH (09:12)
[2018-07-11] MEDS: CHOLECALCIFEROL 1,000 UNIT TABLET PO SCH (09:12)
[2018-07-11] MEDS: LISINOPRIL 20 MG TABLET PO SCH ×2 (09:12→21:51)
[2018-07-11] MEDS: CLOPIDOGREL 75 MG TABLET PO SCH (09:12)
[2018-07-11] MEDS: TACROLIMUS 0.5 MG CAPSULE PO SCH ×2 (09:13→21:52)
[2018-07-11 13:18] VITALS: BP 122/56
[2018-07-11] MEDS: CEFTRIAXONE 2 GM in SODIUM CHLORIDE 0.9% 50 ML IV SCH (17:58)
[2018-07-11 20:18] VITALS: BP 126/56
[2018-07-11] MEDS: PRAVASTATIN SODIUM 80 MG HOMEMEDPO SCH (21:53)
[2018-07-12 01:17] VITALS: BP 137/61
[2018-07-12 05:12] LABS: BASOPHILS # (AUTO) 0.02 x10^3/uL (0-0.1); BASOPHILS % (AUTO) 0 % (0-1); EOSINOPHILS # (AUTO) 0.62 x10^3/uL (0-0.4); EOSINOPHILS % (AUTO) 7 % (1-7); LYMPHOCYTES # (AUTO) 0.84 x10^3/uL (1-3.4); LYMPHOCYTES % (AUTO) 9 % (22-44); MD NO; MEAN CORPUSCULAR HEMOGLOBIN 31.3 pg (27.5-34.5); MEAN CORPUSCULAR HGB CONC 33.3 g/dL (33.2-36.2); MONOCYTES # (AUTO) 0.92 x10^3/uL (0.2-0.8); MONOCYTES % (AUTO) 10 % (2-9); NEUTROPHILS # (AUTO) 6.57 x10^3/uL (1.8-6.8); NEUTROPHILS % (AUTO) 73 % (42-75); PLATELET COUNT 410 x10^3/uL (130-400); RED BLOOD COUNT 3.41 x10^6/uL (4.38-5.82); RED CELL DISTRIBUTION WIDTH 13.8 % (9.4-14.8)
[2018-07-12 05:30] LABS: CALCIUM 8.4 mg/dL (8.5-10.1); CHLORIDE 105 mmol/L (98-107)
[2018-07-12 05:33] LABS: ANION GAP 10 mmol/L (5-15); CREATININE 1.06 mg/dL (0.7-1.3)
[2018-07-12] MEDS: CARVEDILOL 6.25 MG TABLET PO SCH ×2 (06:12→17:25)
[2018-07-12] MEDS: INSULIN LISPRO 100 UNITS/ML, PEN SQ-INSULIN SCH ×4 (07:00→20:53)
[2018-07-12 08:01] VITALS: BP 127/56
[2018-07-12] MEDS: TAMSULOSIN 0.4 MG CAP.ER.24H PO SCH ×2 (08:52→20:51)
[2018-07-12] MEDS: FERROUS SULFATE 325 MG TABLET PO SCH ×2 (08:52→20:52)
[2018-07-12] MEDS: CLOPIDOGREL 75 MG TABLET PO SCH (08:53)
[2018-07-12] MEDS: CHOLECALCIFEROL 1,000 UNIT TABLET PO SCH (08:53)
[2018-07-12] MEDS: LISINOPRIL 20 MG TABLET PO SCH ×2 (08:53→20:52)
[2018-07-12] MEDS: TACROLIMUS 0.5 MG CAPSULE PO SCH ×2 (08:53→20:52)
[2018-07-12] MEDS: MAGNESIUM OXIDE 400 MG TABLET PO SCH (08:53)
[2018-07-12] MEDS: RIVAROXABAN 15 MG TABLET PO SCH (08:53)
[2018-07-12] MEDS: AZITHROMYCIN 250 MG TABLET PO SCH (08:54)
[2018-07-12 14:36] VITALS: BP 122/50
[2018-07-12] MEDS: CEFTRIAXONE 2 GM in SODIUM CHLORIDE 0.9% 50 ML IV SCH (17:25)
[2018-07-12 20:17] VITALS: BP 132/54
[2018-07-12] MEDS: PRAVASTATIN SODIUM 80 MG HOMEMEDPO SCH (20:52)
[2018-07-13 01:57] VITALS: BP 131/55
[2018-07-13 05:10] LABS: BASOPHILS # (AUTO) 0.03 x10^3/uL (0-0.1); BASOPHILS % (AUTO) 0 % (0-1); EOSINOPHILS % (AUTO) 8 % (1-7); LYMPHOCYTES # (AUTO) 0.97 x10^3/uL (1-3.4); LYMPHOCYTES % (AUTO) 13 % (22-44); MD NO; MEAN CORPUSCULAR HEMOGLOBIN 31.8 pg (27.5-34.5); MEAN CORPUSCULAR HGB CONC 33.2 g/dL (33.2-36.2); MEAN CORPUSCULAR VOLUME 95.7 fL (81-97); MONOCYTES % (AUTO) 10 % (2-9); NEUTROPHILS # (AUTO) 5.28 x10^3/uL (1.8-6.8); NEUTROPHILS % (AUTO) 69 % (42-75); PLATELET COUNT 389 x10^3/uL (130-400); RED BLOOD COUNT 3.41 x10^6/uL (4.38-5.82); RED CELL DISTRIBUTION WIDTH 13.8 % (9.4-14.8)
[2018-07-13 05:20] LABS: ANION GAP 8 mmol/L (5-15); CALCIUM 7.9 mg/dL (8.5-10.1); CHLORIDE 106 mmol/L (98-107)
[2018-07-13 05:23] LABS: CREATININE 0.96 mg/dL (0.7-1.3)
[2018-07-13] MEDS: CARVEDILOL 6.25 MG TABLET PO SCH ×2 (05:26→17:25)
[2018-07-13 07:03] VITALS: BP 146/53
[2018-07-13] MEDS: TACROLIMUS 0.5 MG CAPSULE PO SCH ×2 (08:39→21:56)
[2018-07-13] MEDS: INSULIN LISPRO 100 UNITS/ML, PEN SQ-INSULIN SCH ×4 (08:39→22:08)
[2018-07-13] MEDS: AZITHROMYCIN 250 MG TABLET PO SCH (08:40)
[2018-07-13] MEDS: RIVAROXABAN 15 MG TABLET PO SCH (08:41)
[2018-07-13] MEDS: CHOLECALCIFEROL 1,000 UNIT TABLET PO SCH (08:41)
[2018-07-13] MEDS: CLOPIDOGREL 75 MG TABLET PO SCH (08:42)
[2018-07-13] MEDS: FERROUS SULFATE 325 MG TABLET PO SCH ×2 (08:43→21:57)
[2018-07-13] MEDS: TAMSULOSIN 0.4 MG CAP.ER.24H PO SCH ×2 (08:43→21:57)
[2018-07-13] MEDS: LISINOPRIL 20 MG TABLET PO SCH ×2 (08:44→21:56)
[2018-07-13] MEDS: MAGNESIUM OXIDE 400 MG TABLET PO SCH (08:48)
[2018-07-13 13:47] VITALS: BP 118/53
[2018-07-13] MEDS: FUROSEMIDE 20 MG TABLET PO SCH (14:31)
[2018-07-13] MEDS: CEFTRIAXONE 2 GM in SODIUM CHLORIDE 0.9% 50 ML IV SCH (17:26)
[2018-07-13] MEDS: PRAVASTATIN SODIUM 80 MG HOMEMEDPO SCH (21:00)
[2018-07-13 21:18] VITALS: BP 134/57
[2018-07-14 03:04] VITALS: BP 149/60
[2018-07-14 05:29] LABS: ANION GAP 8 mmol/L (5-15); CALCIUM 8.4 mg/dL (8.5-10.1); CHLORIDE 105 mmol/L (98-107); CREATININE 1.02 mg/dL (0.7-1.3)
[2018-07-14] MEDS: CARVEDILOL 6.25 MG TABLET PO SCH ×2 (05:45→16:48)
[2018-07-14 07:12] VITALS: BP 138/62
[2018-07-14] MEDS: INSULIN LISPRO 100 UNITS/ML, PEN SQ-INSULIN SCH ×4 (08:23→21:35)
[2018-07-14] MEDS: FERROUS SULFATE 325 MG TABLET PO SCH ×2 (08:24→21:36)
[2018-07-14] MEDS: CHOLECALCIFEROL 1,000 UNIT TABLET PO SCH (08:24)
[2018-07-14] MEDS: CLOPIDOGREL 75 MG TABLET PO SCH (08:24)
[2018-07-14] MEDS: MAGNESIUM OXIDE 400 MG TABLET PO SCH (08:24)
[2018-07-14] MEDS: RIVAROXABAN 15 MG TABLET PO SCH (08:24)
[2018-07-14] MEDS: AZITHROMYCIN 250 MG TABLET PO SCH (08:24)
[2018-07-14] MEDS: LISINOPRIL 20 MG TABLET PO SCH ×2 (08:25→21:36)
[2018-07-14] MEDS: TACROLIMUS 0.5 MG CAPSULE PO SCH ×2 (08:25→21:36)
[2018-07-14] MEDS: FUROSEMIDE 20 MG TABLET PO SCH (08:26)
[2018-07-14] MEDS: TAMSULOSIN 0.4 MG CAP.ER.24H PO SCH ×2 (08:26→21:36)
[2018-07-14] MEDS: AMLODIPINE 5 MG TABLET PO SCH ×2 (08:33→21:36)
[2018-07-14] MEDS ORDERED: FUROSEMIDE 20 MG TABLET PO ONE (12:00)
[2018-07-14 13:50] VITALS: BP 127/66
[2018-07-14] MEDS: CEFTRIAXONE 2 GM in SODIUM CHLORIDE 0.9% 50 ML IV SCH (16:54)
[2018-07-14 19:13] VITALS: BP 137/54
[2018-07-14] MEDS: PRAVASTATIN SODIUM 80 MG HOMEMEDPO SCH (21:37)
[2018-07-15 02:13] VITALS: BP 138/58
[2018-07-15] MEDS: CARVEDILOL 6.25 MG TABLET PO SCH (06:00)
[2018-07-15] MEDS: INSULIN LISPRO 100 UNITS/ML, PEN SQ-INSULIN SCH ×2 (07:39→11:39)
[2018-07-15 08:20] VITALS: BP 140/64
[2018-07-15] MEDS: CLOPIDOGREL 75 MG TABLET PO SCH (08:40)
[2018-07-15] MEDS: TAMSULOSIN 0.4 MG CAP.ER.24H PO SCH (08:40)
[2018-07-15] MEDS: MAGNESIUM OXIDE 400 MG TABLET PO SCH (08:40)
[2018-07-15] MEDS: CHOLECALCIFEROL 1,000 UNIT TABLET PO SCH (08:40)
[2018-07-15] MEDS: LISINOPRIL 20 MG TABLET PO SCH (08:41)
[2018-07-15] MEDS: FERROUS SULFATE 325 MG TABLET PO SCH (08:42)
[2018-07-15] MEDS: AMLODIPINE 5 MG TABLET PO SCH (08:43)
[2018-07-15] MEDS: TACROLIMUS 0.5 MG CAPSULE PO SCH (08:43)
[2018-07-15] MEDS: RIVAROXABAN 15 MG TABLET PO SCH (08:43)
[2018-07-15] MEDS: AZITHROMYCIN 250 MG TABLET PO SCH (08:56)
[2018-07-15] MEDS ORDERED: FUROSEMIDE 40 MG TABLET PO SCH (09:00)
[2018-07-15] MEDS ORDERED: CEFDINIR 300 MG CAPSULE PO SCH (10:30)
[2018-07-15] MEDS ORDERED: CEFD300C37 PO (13:01)
[2018-07-15] MEDS ORDERED: CARV6.2512 PO (13:01)
== END 2018-07-15 15:06 | DRG 682 ==
LOC: ED 13:40 → EDIP 16:15 → 3NE 17:25
PROVIDERS: ADMIT Internal Medicine; ATTEND Internal Medicine
DX: N17.9 Acute kidney failure, unspecified (principal); J96.01 Acute respiratory failure with hypoxia; I50.43 Acute on chronic combined systolic (congestive) and diastolic (congestive) heart failure; J15.9 Unspecified bacterial pneumonia; I13.0 Hypertensive heart and chronic kidney disease with heart failure and stage 1 through stage 4 chronic kidney disease, or unspecified chronic kidney disease; E87.1 Hypo-osmolality and hyponatremia; Z94.0 Kidney transplant status; D68.69 Other thrombophilia; Z94.4 Liver transplant status; E11.22 Type 2 diabetes mellitus with diabetic chronic kidney disease; I48.91 Unspecified atrial fibrillation; D63.8 Anemia in other chronic diseases classified elsewhere; E11.649 Type 2 diabetes mellitus with hypoglycemia without coma; E86.1 Hypovolemia; I25.10 Atherosclerotic heart disease of native coronary artery without angina pectoris; R91.8 Other nonspecific abnormal finding of lung field; N18.9 Chronic kidney disease, unspecified; G47.00 Insomnia, unspecified; I27.20 Pulmonary hypertension, unspecified; I25.2 Old myocardial infarction; I48.2 Chronic atrial fibrillation; I49.5 Sick sinus syndrome; Z77.090 Contact with and (suspected) exposure to asbestos; Z96.651 Presence of right artificial knee joint; Z79.899 Other long term (current) drug therapy; Z86.73 Personal history of transient ischemic attack (TIA), and cerebral infarction without residual deficits; Z95.0 Presence of cardiac pacemaker; Z79.01 Long term (current) use of anticoagulants; Z95.1 Presence of aortocoronary bypass graft; Z95.5 Presence of coronary angioplasty implant and graft
CPT/HCPCS: 36415; 36600; 71045; 71250; 80048; 80053; 81001; 82378; 82803; 82962; 83036; 83605; 83615; 83735; 83880; 84145; 84484; 85025; 85610; 85651; 86140; 86631; 86632; 86635; 86738; 87040; 87070; 87081; 87281; 87305; 87385; 87449; 87633; 93005; 94640; 96374; 96375; 99285; G0378; J0456; J0696; J2550; J3370; J7507; J7517; J1450; J1815; J7050

== ENCOUNTER → 2018-08-15 | Outpatient (CLI) | payer MEDICARE ==
[~2018-08-15] MED LIST changes: +CARV6.2512 PO; +CEFD300C37 PO; +RIVA15TA PO
[2018-08-15 10:26] LABS: BASOPHILS # (AUTO) 0.03 x10^3/uL (0-0.1); BASOPHILS % (AUTO) 1 % (0-1); EOSINOPHILS # (AUTO) 0.14 x10^3/uL (0-0.4); EOSINOPHILS % (AUTO) 2 % (1-7); LYMPHOCYTES # (AUTO) 1.19 x10^3/uL (1-3.4); LYMPHOCYTES % (AUTO) 19 % (22-44); MD NO; MEAN CORPUSCULAR HEMOGLOBIN 32.2 pg (27.5-34.5); MEAN CORPUSCULAR HGB CONC 33.6 g/dL (33.2-36.2); MEAN PLATELET VOLUME 9.5 fL (7.4-10.4); MONOCYTES # (AUTO) 0.51 x10^3/uL (0.2-0.8); MONOCYTES % (AUTO) 8 % (2-9); NEUTROPHILS # (AUTO) 4.52 x10^3/uL (1.8-6.8); NEUTROPHILS % (AUTO) 71 % (42-75); PLATELET COUNT 185 x10^3/uL (130-400); RED BLOOD COUNT 4.14 x10^6/uL (4.38-5.82); RED CELL DISTRIBUTION WIDTH 16.3 % (9.4-14.8)
[2018-08-15 10:28] LABS: CULTURE INDICATED? NO; MICROSCOPIC NOT IND
[2018-08-15 10:38] LABS: ALANINE AMINOTRANSFERASE 24 U/L (12-78); ALBUMIN 3.8 g/dL (3.4-5.0); ANION GAP 9 mmol/L (5-15); CALCIUM 9.1 mg/dL (8.5-10.1); CHLORIDE 107 mmol/L (98-107); CREATININE 1.34 mg/dL (0.7-1.3)
[2018-08-15 10:40] LABS: ALKALINE PHOSPHATASE 100 U/L (45-117); BILIRUBIN,TOTAL 1.3 mg/dL (0.2-1.0); TOTAL PROTEIN 7.6 g/dL (6.4-8.2)
[2018-08-15 11:03] LABS: HEMOGLOBIN A1C 8.5 % (4.2-6.3)
== END | disposition home or self-care (01) ==
LOC: LAB 09:55
PROVIDERS: ATTEND Internal Medicine Endocrinology, Diabetes & Metabolism
DX: I12.9 Hypertensive chronic kidney disease with stage 1 through stage 4 chronic kidney disease, or unspecified chronic kidney disease (principal); N18.3 Chronic kidney disease, stage 3 (moderate); E11.8 Type 2 diabetes mellitus with unspecified complications; R80.9 Proteinuria, unspecified; D64.9 Anemia, unspecified; E55.9 Vitamin D deficiency, unspecified; Z85.828 Personal history of other malignant neoplasm of skin; Z94.0 Kidney transplant status
CPT/HCPCS: 36415; 80053; 80197; 81003; 82306; 82570; 83036; 83735; 83970; 84156; 85025

== ENCOUNTER → 2018-11-19 | Outpatient (CLI) | payer MEDICARE ==
[~2018-11-19] MED LIST changes: +AMLO-150 PO; -AMLO5TAB7 PO
[2018-11-19 08:45] LABS: % IRON SATURATION 26 % (20-55); ALBUMIN 3.9 g/dL (3.4-5.0); ANION GAP 6 mmol/L (5-15); CALCIUM 9.2 mg/dL (8.5-10.1); CHLORIDE 109 mmol/L (98-107); IRON LEVEL 62 mcg/dL (65-175); TOTAL IRON BINDING CAPACITY 236 mcg/dL (250-450)
[2018-11-19 08:46] LABS: BASOPHILS # (AUTO) 0.02 x10^3/uL (0-0.1); BASOPHILS % (AUTO) 0 % (0-1); EOSINOPHILS # (AUTO) 0.11 x10^3/uL (0-0.4); EOSINOPHILS % (AUTO) 2 % (1-7); LYMPHOCYTES # (AUTO) 1.02 x10^3/uL (1-3.4); LYMPHOCYTES % (AUTO) 17 % (22-44); MD NO; MEAN CORPUSCULAR HEMOGLOBIN 31.9 pg (27.5-34.5); MEAN CORPUSCULAR HGB CONC 33.3 g/dL (33.2-36.2); MEAN PLATELET VOLUME 10.1 fL (7.4-10.4); MONOCYTES # (AUTO) 0.52 x10^3/uL (0.2-0.8); MONOCYTES % (AUTO) 9 % (2-9); NEUTROPHILS # (AUTO) 4.24 x10^3/uL (1.8-6.8); NEUTROPHILS % (AUTO) 72 % (42-75); PLATELET COUNT 136 x10^3/uL (130-400); RED BLOOD COUNT 4.42 x10^6/uL (4.38-5.82); RED CELL DISTRIBUTION WIDTH 13.6 % (9.4-14.8)
[2018-11-19 08:53] LABS: HEMOGLOBIN A1C 7.3 % (4.2-6.3)
== END | disposition home or self-care (01) ==
LOC: LAB 08:08
PROVIDERS: ATTEND Nurse Practitioner
DX: I12.9 Hypertensive chronic kidney disease with stage 1 through stage 4 chronic kidney disease, or unspecified chronic kidney disease (principal); N18.3 Chronic kidney disease, stage 3 (moderate); Z94.0 Kidney transplant status; E11.22 Type 2 diabetes mellitus with diabetic chronic kidney disease
CPT/HCPCS: 36415; 80069; 80197; 82306; 82728; 83036; 83540; 83550; 83735; 83970; 84550; 85025

== ENCOUNTER → 2019-02-17 | Outpatient (CLI) | payer MEDICARE ==
[2019-02-17 09:15] LABS: ALANINE AMINOTRANSFERASE 29 U/L (12-78); ALBUMIN 4.1 g/dL (3.4-5.0); ANION GAP 6 mmol/L (5-15); CALCIUM 9.2 mg/dL (8.5-10.1); CHLORIDE 110 mmol/L (98-107); CREATININE 1.32 mg/dL (0.7-1.3)
[2019-02-17 09:18] LABS: ALKALINE PHOSPHATASE 96 U/L (45-117); BILIRUBIN,TOTAL 1.4 mg/dL (0.2-1.0); CHOLESTEROL, TOTAL 109 mg/dL (140-239); HDL CHOL % 33 % (26-37); HDL CHOLESTEROL (DIRECT) 36 mg/dL (40-60); LDL CHOLESTEROL,CALCULATED 58 mg/dL (54-169); LDL/HDL RATIO 1.6 (0.5-3.0); TOTAL PROTEIN 7.7 g/dL (6.4-8.2); TRIGLYCERIDES 76 mg/dL (50-200); VLDL CHOLESTEROL 15 mg/dL (0-25)
[2019-02-17 10:25] LABS: HEMOGLOBIN A1C 7.4 % (4.2-6.3)
== END | disposition home or self-care (01) ==
LOC: LAB 08:48
PROVIDERS: ATTEND Internal Medicine Cardiovascular Disease
DX: E11.21 Type 2 diabetes mellitus with diabetic nephropathy (principal); E78.2 Mixed hyperlipidemia; I10 Essential (primary) hypertension; I25.810 Atherosclerosis of coronary artery bypass graft(s) without angina pectoris; I48.2 Chronic atrial fibrillation; I65.29 Occlusion and stenosis of unspecified carotid artery; Z95.0 Presence of cardiac pacemaker
CPT/HCPCS: 36415; 80053; 80061; 83036; 84100

== ENCOUNTER → 2019-02-20 | Outpatient (CLI) | payer MEDICARE | END | disposition home or self-care (01) | LOC: CVU 08:34 | PROVIDERS: ATTEND Internal Medicine Cardiovascular Disease | DX: I48.0 Paroxysmal atrial fibrillation (principal); I25.810 Atherosclerosis of coronary artery bypass graft(s) without angina pectoris; Z95.1 Presence of aortocoronary bypass graft; I08.8 Other rheumatic multiple valve diseases | CPT/HCPCS: 0399T; 93306 ==

== ENCOUNTER 2019-05-26 08:24 | Outpatient (CLI) | payer MEDICARE | END 2019-05-26 23:59 | disposition home or self-care (01) | LOC: LAB 08:24 | PROVIDERS: ATTEND Nurse Practitioner | DX: I12.9 Hypertensive chronic kidney disease with stage 1 through stage 4 chronic kidney disease, or unspecified chronic kidney disease (principal); E11.22 Type 2 diabetes mellitus with diabetic chronic kidney disease; N18.3 Chronic kidney disease, stage 3 (moderate) | CPT/HCPCS: 36415; 80069; 80197; 81001; 82306; 82570; 82728; 83036; 83540; 83550; 83735; 83970; 84156; 84550; 85025 ==

== ENCOUNTER 2019-10-28 08:30 | Outpatient (CLI) | payer MEDICARE ==
[~2019-10-28 08:30] MED LIST changes: +ASPI81TA45 PO; +ATOR20TA37 PO; +CARV3.122 PO; +DOXY100C15 PO; +GUAI-103 PO; +INSU100I13 SQ-INSULIN; +LACT1TAB13 PO; +RIVA20TA PO; +SAXA5TAB PO
[2019-10-28 09:01] LABS: LDL/HDL RATIO 1.5 (0.5-3.0)
== END 2019-10-28 23:59 | disposition home or self-care (01) ==
LOC: CVU 08:30
PROVIDERS: ATTEND Internal Medicine Cardiovascular Disease
DX: I08.8 Other rheumatic multiple valve diseases (principal); I11.0 Hypertensive heart disease with heart failure; I50.9 Heart failure, unspecified; E11.9 Type 2 diabetes mellitus without complications; I25.5 Ischemic cardiomyopathy
CPT/HCPCS: 36415; 80061; 82043; 83036; 83880; 93306; 93356

== ENCOUNTER → 2019-11-19 | Outpatient (CLI) | payer MEDICARE ==
[2019-11-19 08:56] LABS: MICROSCOPIC NOT IND
[2019-11-19 08:58] LABS: BASOPHILS # (AUTO) 0.02 x10^3/uL (0-0.1); BASOPHILS % (AUTO) 0 % (0-1); EOSINOPHILS # (AUTO) 0.15 x10^3/uL (0-0.4); EOSINOPHILS % (AUTO) 3 % (1-7); LYMPHOCYTES # (AUTO) 0.81 x10^3/uL (1-3.4); LYMPHOCYTES % (AUTO) 16 % (22-44); MD NO; MEAN CORPUSCULAR HEMOGLOBIN 30.9 pg (27.5-34.5); MEAN CORPUSCULAR HGB CONC 33.1 g/dL (33.2-36.2); MEAN CORPUSCULAR VOLUME 93.4 fL (81-97); MEAN PLATELET VOLUME 9.4 fL (7.4-10.4); MONOCYTES # (AUTO) 0.52 x10^3/uL (0.2-0.8); MONOCYTES % (AUTO) 11 % (2-9); NEUTROPHILS # (AUTO) 3.46 x10^3/uL (1.8-6.8); NEUTROPHILS % (AUTO) 70 % (42-75); PLATELET COUNT 176 x10^3/uL (130-400); RED BLOOD COUNT 4.31 x10^6/uL (4.38-5.82); RED CELL DISTRIBUTION WIDTH 18.5 % (9.4-14.8)
[2019-11-19 09:11] LABS: ALANINE AMINOTRANSFERASE 31 U/L (12-78); ALBUMIN 3.3 g/dL (3.4-5.0); ANION GAP 6 mmol/L (5-15); CHLORIDE 105 mmol/L (98-107); CREATININE 1.39 mg/dL (0.7-1.3); CREATININE,URINE RANDOM 45.6 mg/dL
[2019-11-19 09:14] LABS: ALKALINE PHOSPHATASE 121 U/L (45-117); BILIRUBIN,TOTAL 1.1 mg/dL (0.2-1.0); CHOL/HDL RATIO 3.2; CHOLESTEROL, TOTAL 112 mg/dL (140-239); HDL CHOL % 31 % (26-37); HDL CHOLESTEROL (DIRECT) 35 mg/dL (40-60); LDL CHOLESTEROL,CALCULATED 61 mg/dL (54-169); LDL/HDL RATIO 1.7 (0.5-3.0); TOTAL PROTEIN 7.3 g/dL (6.4-8.2); TRIGLYCERIDES 81 mg/dL (50-200); VLDL CHOLESTEROL 16 mg/dL (0-25)
== END | disposition home or self-care (01) ==
LOC: LAB 08:37
PROVIDERS: ATTEND Internal Medicine Nephrology
DX: I12.9 Hypertensive chronic kidney disease with stage 1 through stage 4 chronic kidney disease, or unspecified chronic kidney disease (principal); E11.22 Type 2 diabetes mellitus with diabetic chronic kidney disease; N18.3 Chronic kidney disease, stage 3 (moderate); E55.9 Vitamin D deficiency, unspecified; D64.9 Anemia, unspecified; Z94.0 Kidney transplant status
CPT/HCPCS: 36415; 80053; 80061; 80197; 81003; 82306; 82310; 82570; 83036; 83735; 83970; 84100; 84156; 84550; 85025